=== PATIENT | male | born 1985 | race Caucasian/White ===

== ENCOUNTER 2023-06-09 09:35 | Emergency (ER) | payer MEDICAID ==
[~2023-06-09] VITALS: Ht 185.4 cm; Wt 79.0 kg
[2023-06-09 09:42] VITALS: BP 152/100; RESP 20; TEMP 98; O2SAT 100
[2023-06-09 09:46] VITALS: PULSE 74
[2023-06-09] MEDS ORDERED: ACYC5CRE3 TP (10:06)
== END 2023-06-09 10:10 | disposition home or self-care (01) ==
LOC: ER 09:35
DX: R21 Rash and other nonspecific skin eruption (principal); B00.9 Herpesviral infection, unspecified; R00.0 Tachycardia, unspecified; F15.10 Other stimulant abuse, uncomplicated
CPT/HCPCS: 99281